=== PATIENT | male | born 1980 | race Caucasian/White ===

== ENCOUNTER 2016-06-02 21:58 | Emergency (ER) | payer MEDICAID ==
[2016-06-02] MEDS ORDERED: LORAZEPAM 2 MG/ML VIAL IV ONE (22:12)
--- NOTE | 2016-06-02 22:13 | Emergency Department Record ---
History of Present Illness - General Chief Complaint: Chest Pain Stated Complaint: CHEST PAIN/TIGHTNESS Time Seen by Provider: 06/02/16 22:12 Source: Patient Mode of Arrival: Ambulatory - History of Present Illness Initial Comments: Patient states that he began having chest tightness with anxiety around 7 p.m. tonight. He admits to having 4 drinks of alcohol and smoking some marijuana tonight. He has had "these episodes of anxiety before. " No history of CT, PE, or documented heart problems. He also complains of feeling very weak all over. Onset/Timin -: Hour(s) Pain Location: Substernal Severity scale (1-10): 5 Quality: Tightness Consistency: Constant - Related Data Home Medications Medication Instructions Recorded Confirmed Last Taken Butalb/Acetaminophen/Caffeine 1 each PO Q4H PRN 06/02/16 06/02/16 Unknown [Fioricet] Metoclopramide HCl [Reglan] 10 mg PO DAILY 06/02/16 06/02/16 Unknown Omeprazole [Prilosec] 20 mg PO DAILY 06/02/16 06/02/16 Unknown Allergies Allergy/AdvReac Type Severity Reaction Status Date / Time No Known Drug Allergies Allergy Verified 09/03/15 14:24 Travel Screening - Travel/Exposure Within Last 30 Days Have you traveled within the last 30 days?: No Review of Systems Reviewed: No additional complaints except as noted below Constitutional: Reports: As per HPI. Denies: Chills, Fever, Malaise, Night sweats, Weakness, Weight change Eyes: Reports: As per HPI. Denies: Eye discharge, Eye pain, Photophobia, Vision change ENT: Reports: As per HPI. Denies: Congestion, Dental pain, Ear pain, Epistaxis , Hearing loss, Throat pain Respiratory: Reports: As per HPI. Denies: Cough, Dyspnea, Hemoptysis, Stridor, Wheezes Cardiovascular: Reports: As per HPI. Denies: Arrhythmia, Chest pain, Dyspnea on exertion, Edema, Murmurs, Orthopnea, Palpitations, Paroxysmal nocturnal dyspnea, Rheumatic Fever, Syncope Endocrine: Reports: As per HPI. Denies: Fatigue, Heat or cold intolerance, Polydipsia, Polyuria Gastrointestinal: Reports: As per HPI. Denies: Abdominal pain, Constipation, Diarrhea, Hematemesis, Hematochezia, Melena, Nausea, Vomiting Genitourinary: Reports: As per HPI. Denies: Dysuria, Frequency, Hematuria, Incontinence, Retention, Testicular pain, Testicular mass, Urgency Musculoskeletal: Reports: As per HPI. Denies: Arthralgia, Back pain, Gout, Joint swelling, Myalgia, Neck pain Skin: Reports: As per HPI. Denies: Bruising, Change in color, Change in hair/ nails, Lesions, Pruritus, Rash Neurological: Reports: As per HPI. Denies: Abnormal gait, Confusion, Headache, Numbness, Paresthesias, Seizure, Tingling, Tremors, Vertigo, Weakness Psychiatric: Reports: As per HPI. Denies: Anxiety, Auditory hallucinations, Depression, Homicidal thoughts, Suicidal thoughts, Visual hallucinations Hematological/Lymphatic: Reports: As per HPI. Denies: Anemia, Blood Clots, Easy bleeding, Easy bruising, Swollen glands Past Medical History - SOCIAL HISTORY Smoking Status: Current every day smoker Alcohol Use: Occassional Drug Use: Occassional Drug Use Detail:: Marijuana - RESPIRATORY Hx Respiratory Disorders: No - CARDIOVASCULAR Hx Cardio Disorders: No - NEURO Hx Neuro Disorders: Yes Hx Headaches: Yes (migraines) Comment:: sciatic pain - GI Hx GI Disorders: No - Hx Genitourinary Disorders: No - ENDOCRINE Hx Endocrine Disorders: No - MUSCULOSKELETAL Hx Musculoskeletal Disorders: Yes Comment:: Sciatica - PSYCH Hx Psych Problems: No - HEMATOLOGY/ONCOLOGY Hx Hematology/Oncology Disorders: No Family Medical History Any Significant Family History?: Yes Hx Cancer: Mother Physical Exam - General General Appearance: Alert, Oriented x3, Cooperative, No acute distress, Anxious - Head Head exam: Normal inspection - Eye Eye exam: Normal appearance, PERRL Pupils: Normal accommodation - ENT ENT exam: Normal exam, Mucous membranes moist, Normal external ear exam, Normal orophraynx, TM's normal bilaterally Ear exam: Normal external inspection. negative: External canal tenderness Nasal Exam: Normal inspection. negative: Discharge, Sinus tenderness Mouth exam: Normal external inspection, Tongue normal Teeth exam: Normal inspection. negative: Dental caries Throat exam: Normal inspection. negative: Tonsillar erythema, Tonsillar exudate - Neck Neck exam: Normal inspection, Full ROM. negative: Tenderness - Respiratory Respiratory exam: Normal lung sounds bilaterally. negative: Respiratory distress - Cardiovascular Cardiovascular Exam: Normal rhythm, Normal heart sounds, Tachycardia - GI/Abdominal GI/Abdominal exam: Soft, Normal bowel sounds. negative: Tenderness - Rectal Rectal exam: Deferred - exam: Deferred - Extremities Extremities exam: Normal inspection, Full ROM, Normal capillary refill. negative: Tenderness - Back Back exam: Reports: Normal inspection, Full ROM. Denies: Muscle spasm, Rash noted, Tenderness - Neurological Neurological exam: Alert, Normal gait, Oriented X3, Reflexes normal - Psychiatric Psychiatric exam: Normal affect, Normal mood - Skin Skin exam: Dry, Intact, Normal color, Warm Course Vital Signs 06/02/16 22:03 Temperature 98.7 F Pulse Rate 124 H Respiratory 28 H Rate Blood Pressure 161/94 Pulse Ox 98 - Reevaluation(s) Reevaluation #1: Patient sleeping after ativan. Potassium ordered, awaiting results. 06/03/16 00:28 Reevaluation #2: Patient is feeling much better after sleeping. No further tachycardia. Awaiting repeat blood draw. Going back to sleep. 06/03/16 01:01 Reevaluation #3: Patient's drugs screen is positive for opiates, barbs, marijuana and alcohol. 06/03/16 02:38 Medical Decision Making - Management Options MDM Management: No Additional Work-up Planned - Data Complexity MDM Data: Labs Ordered and/or Reviewed, X-Ray Ordered and/or Reviewed (CXR two view Neg per ED physician) - Lab Data Result diagrams: 06/02/16 22:07 06/02/16 22:07 Disposition Disposition: Discharge Clinical Impression: Anxiety attack, Polydrug abuse Disposition: Home, Self-Care Condition: (1) Good Instructions: Polysubstance Abuse (ED), Cannabis Abuse (ED), Anxiety (ED), Narcotic Abuse (ED), Barbiturate Abuse (ED), Abuse of Alcohol (ED) Additional Instructions: Discontinue abuse of all drugs. Home to bed, do not drive. Follow up with PCP. Forms: Patient Portal Access
[2016-06-02 22:16] LABS: BASO % 0.3 % (0-6); EOS % 2.3 % (0-6); GRAN % 59.4 % (47-80); HEMATOCRIT 40.1 % (42.0-52.0); HEMOGLOBIN 14.4 gm/dl (14.0-18.0); LYMPH % 26.8 % (16-45); MEAN CELL VOLUME 87.2 fl (81-97); MEAN CORPUSCULAR HEMOGLOBIN 31.3 pg (27-33); MEAN CORPUSCULAR HGB CONC 35.9 g/dl (32-36); MEAN PLATELET VOLUME 9.1 fl (7.4-10.4); MONO % 11.2 % (0-9); PLATELET COUNT 321 K/uL (130-400); RED CELL DISTRIBUTION WIDTH 12.4 % (11.5-14.5); WHITE BLOOD COUNT W/O DIFF 12.1 K/uL (4.2-12.2)
[2016-06-02 22:30] LABS: ANION GAP 16.5 (7-16); BLOOD UREA NITROGEN 15 mg/dL (9-20); CARBON DIOXIDE 21.5 mmol/L (22-30); CREATININE 1.1 mg/dL (0.66-1.25); EST GLOMERULAR FILTRATION RATE > 60 ml/min; GLUCOSE,RANDOM 107 mg/dL (70-110)
[2016-06-02 22:38] LABS: BARBITURATE SCREEN URINE DETECTED; METHADONE SCREEN URINE NOT DETECTED; TRICYCLIC ANTIDEPRESSANT SCRN NOT DETECTED
[2016-06-02 22:39] LABS: AMPHETAMINE SCREEN URINE NOT DETECTED; BENZODIAZEPINE SCREEN URINE NOT DETECTED; COCAINE SCREEN URINE NOT DETECTED; METHAMPHETAMINE SCREEN NOT DETECTED; OPIATE SCREEN URINE DETECTED; OXYCODONE SCREEN URINE NOT DETECTED; PHENCYCLIDINE SCREEN URINE NOT DETECTED; PROPOXYPHENE SCREEN URINE NOT DETECTED; THC SCREEN URINE DETECTED
[2016-06-02 22:42] LABS: CKMB 7.4 ug/L (0-6)
[2016-06-02 22:50] LABS: TROPONIN I < 0.012 ng/mL (0.00-0.034)
[2016-06-02] MEDS ORDERED: POTASSIUM CHLORIDE 20 MEQ TABLET PO ONE (23:10)
[2016-06-02 23:32] LABS: CREATINE PHOSPHOKINASE 2119 U/L (55-170)
[2016-06-03] MEDS ORDERED: 0.9 % SODIUM CHLORIDE 1,000 ML BAG IV ONE (00:26)
[2016-06-03 02:28] LABS: CKMB 5.2 ug/L (0-6)
[2016-06-03 02:31] LABS: TROPONIN I < 0.012 ng/mL (0.00-0.034)
== END 2016-06-03 03:33 | disposition home or self-care (01) ==
LOC: ER 21:58
DX: F41.0 Panic disorder [episodic paroxysmal anxiety] (principal); F19.10 Other psychoactive substance abuse, uncomplicated; R07.89 Other chest pain; R53.1 Weakness; F10.10 Alcohol abuse, uncomplicated; Y90.1 Blood alcohol level of 20-39 mg/100 ml; F17.210 Nicotine dependence, cigarettes, uncomplicated
CPT/HCPCS: 99284 ×2; 96374; 82550; 85025; 82553; 84484; 80048; 84443; 80305; 85379; 71020; 93005; 93010; G0480; J2060; 80320

== ENCOUNTER 2016-10-29 12:37 | Emergency (ER) | payer MEDICAID ==
--- NOTE | 2016-10-29 13:09 | Emergency Department Record ---
History of Present Illness - General Chief Complaint: Chest Pain Stated Complaint: LT LEG NUMBNESS, PAIN IN LT KNEE,CHEST PAIN Time Seen by Provider: 10/29/16 13:03 Source: Patient, Family () Mode of Arrival: Ambulatory - History of Present Illness Initial Comments: numbness in both legs from the knees down and both lower legs painful yesterday and he took motrin and today at [employer] and he felt pain in the left posterior knee pain .Sharp pain and than he felt lightheaded and he talked to the pharmacy and came in for evaluation. He has pricly feelings in both lef and hands are numb and some prickley feelings in the face to and he has anxiety attacks before. PMH low back pain chronic and on gabapentin for his low back area. Onset/Timin -: Days(s) Onset: Awoke with symptoms, During exertion Improves With: Rest Worsens With: Exertion, Movement Treatments Prior to Arrival: Other - Related Data Home Medications Medication Instructions Recorded Confirmed Last Taken Butalb/Acetaminophen/Caffeine 1 each PO Q4H PRN 06/02/16 10/29/16 Unknown [Fioricet] Metoclopramide HCl [Reglan] 10 mg PO DAILY 06/02/16 10/29/16 10/28/16 Omeprazole [Prilosec] 20 mg PO DAILY 06/02/16 10/29/16 Unknown Cyclobenzaprine HCl [Flexeril] 10 mg PO TID 10/29/16 10/29/16 10/29/16 Gabapentin [Neurontin] 300 mg PO TID 10/29/16 10/29/16 10/29/16 Previous Rx's Medication Instructions Recorded Hydroxyzine Pamoate [Vistaril] 25 mg PO Q6H #20 capsule 10/29/16 Allergies Allergy/AdvReac Type Severity Reaction Status Date / Time No Known Drug Allergies Allergy Verified 09/03/15 14:24 Travel Screening - Travel/Exposure Within Last 30 Days Have you traveled within the last 30 days?: No - Travel/Exposure Within Last Year Have you traveled outside the [place] in the last year?: No - Additonal Travel Details Have you been exposed to anyone with a communicable illness?: No Review of Systems Reviewed: No additional complaints except as noted below Constitutional: Reports: As per HPI. Denies: Chills, Fever, Malaise, Night sweats, Weakness, Weight change Eyes: Reports: As per HPI. Denies: Eye discharge, Eye pain, Photophobia, Vision change ENT: Reports: As per HPI. Denies: Congestion, Dental pain, Ear pain, Epistaxis , Hearing loss, Throat pain Respiratory: Reports: As per HPI. Denies: Cough, Dyspnea, Hemoptysis, Stridor, Wheezes Cardiovascular: Reports: As per HPI. Denies: Arrhythmia, Chest pain, Dyspnea on exertion, Edema, Murmurs, Orthopnea, Palpitations, Paroxysmal nocturnal dyspnea, Rheumatic Fever, Syncope Endocrine: Reports: As per HPI. Denies: Fatigue, Heat or cold intolerance, Polydipsia, Polyuria Gastrointestinal: Reports: As per HPI. Denies: Abdominal pain, Constipation, Diarrhea, Hematemesis, Hematochezia, Melena, Nausea, Vomiting Genitourinary: Reports: As per HPI. Denies: Dysuria, Frequency, Hematuria, Incontinence, Retention, Testicular pain, Testicular mass, Urgency Musculoskeletal: Reports: As per HPI. Denies: Arthralgia, Back pain, Gout, Joint swelling, Myalgia, Neck pain Skin: Reports: As per HPI. Denies: Bruising, Change in color, Change in hair/ nails, Lesions, Pruritus, Rash Neurological: Reports: As per HPI. Denies: Abnormal gait, Confusion, Headache, Numbness, Paresthesias, Seizure, Tingling, Tremors, Vertigo, Weakness Psychiatric: Reports: As per HPI. Denies: Anxiety, Auditory hallucinations, Depression, Homicidal thoughts, Suicidal thoughts, Visual hallucinations Hematological/Lymphatic: Reports: As per HPI. Denies: Anemia, Blood Clots, Easy bleeding, Easy bruising, Swollen glands Past Medical History - SOCIAL HISTORY Smoking Status: Current every day smoker Alcohol Use: None Drug Use: None - RESPIRATORY Hx Respiratory Disorders: No - CARDIOVASCULAR Hx Cardio Disorders: No - NEURO Hx Neuro Disorders: Yes Hx Headaches: Yes (migraines) Comment:: sciatic pain - GI Hx GI Disorders: No - Hx Genitourinary Disorders: No - ENDOCRINE Hx Endocrine Disorders: No - MUSCULOSKELETAL Hx Musculoskeletal Disorders: Yes Comment:: Sciatica - PSYCH Hx Psych Problems: No - HEMATOLOGY/ONCOLOGY Hx Hematology/Oncology Disorders: No Family Medical History Any Significant Family History?: No Hx Cancer: Mother Physical Exam - General General Appearance: Alert, Oriented x3, Cooperative, No acute distress - Head Head exam: Normal inspection - Eye Eye exam: Normal appearance, PERRL Pupils: Normal accommodation - ENT ENT exam: Normal exam, Mucous membranes moist, Normal external ear exam, Normal orophraynx, TM's normal bilaterally Ear exam: Normal external inspection. negative: External canal tenderness Nasal Exam: Normal inspection. negative: Discharge, Sinus tenderness Mouth exam: Normal external inspection, Tongue normal Teeth exam: Normal inspection. negative: Dental caries Throat exam: Normal inspection. negative: Tonsillar erythema, Tonsillar exudate - Neck Neck exam: Normal inspection, Full ROM. negative: Tenderness - Respiratory Respiratory exam: Normal lung sounds bilaterally. negative: Respiratory distress - Cardiovascular Cardiovascular Exam: Regular rate, Normal rhythm, Normal heart sounds - GI/Abdominal GI/Abdominal exam: Soft, Normal bowel sounds. negative: Tenderness - Rectal Rectal exam: Deferred - exam: Deferred - Extremities Extremities exam: Normal inspection, Full ROM, Normal capillary refill. negative: Tenderness - Back Back exam: Reports: Normal inspection, Full ROM. Denies: Muscle spasm, Rash noted, Tenderness - Neurological Neurological exam: Alert, Normal gait, Oriented X3, Reflexes normal - Psychiatric Psychiatric exam: Normal affect, Normal mood - Skin Skin exam: Dry, Intact, Normal color, Warm Course Vital Signs 10/29/16 12:43 Temperature 98.5 F Pulse Rate 87 Respiratory 20 Rate Blood Pressure 142/93 Pulse Ox 99 Medical Decision Making - Data Complexity MDM Data: Labs Ordered and/or Reviewed, EKG Ordered and/or Reviewed (No acute changes) - Lab Data Result diagrams: 10/29/16 13:41 10/29/16 13:41 Disposition Clinical Impression: Anxiety attack Disposition: Home, Self-Care Condition: (1) Good Instructions: Panic Disorder (ED) Additional Instructions: vistaril as needed for anxiety follow up with family in 3 days Prescriptions: Hydroxyzine Pamoate [Vistaril] 25 mg PO Q6H #20 capsule Forms: Patient Portal Access Time of Disposition: 14:43 Quality - Quality Measures Quality Measures: N/A - Blood Pressure Screening Blood Pressure Classification: Hypertensive Reading Systolic Measurement: 142 Diastolic Measurement: 93 Screening for High Blood Pressure: < First Hypertensive BP, F/U Documented > [ G8950] First Hypertensive Follow-up Interventions: Referral to alternative/primary care provider.
[2016-10-29] MEDS ORDERED: 0.9 % SODIUM CHLORIDE 1000ML 1,000 ML IV PRN (13:13)
[2016-10-29] MEDS ORDERED: ASPIRIN 81 MG CHEWABLE TABLET PO ONE (13:13)
[2016-10-29 13:53] LABS: BASO % 0.8 % (0-6); EOS % 4.8 % (0-6); GRAN % 58.5 % (47-80); HEMATOCRIT 42.5 % (42.0-52.0); HEMOGLOBIN 14.9 gm/dl (14.0-18.0); LYMPH % 27.6 % (16-45); MEAN CELL VOLUME 88.9 fl (81-97); MEAN CORPUSCULAR HEMOGLOBIN 31.2 pg (27-33); MEAN CORPUSCULAR HGB CONC 35.1 g/dl (32-36); MEAN PLATELET VOLUME 9.3 fl (7.4-10.4); MONO % 8.3 % (0-9); PLATELET COUNT 273 K/uL (130-400); RED BLOOD COUNT 4.78 M/uL (4.40-5.70); RED CELL DISTRIBUTION WIDTH 12.5 % (11.5-14.5); WHITE BLOOD COUNT W/O DIFF 6.2 K/uL (4.2-12.2)
[2016-10-29 14:02] LABS: BLOOD UREA NITROGEN 13 mg/dL (9-20); CREATININE 0.9 mg/dL (0.66-1.25); EST GLOMERULAR FILTRATION RATE > 60 ml/min; GLUCOSE,RANDOM 92 mg/dL (70-110)
[2016-10-29 14:05] LABS: PARTIAL THROMBOPLASTIN TIME 26.8 SECONDS (24.5-39.1)
[2016-10-29 14:06] LABS: D-DIMER 0.19 mg/L FEU (0-0.59)
[2016-10-29 14:15] LABS: CKMB 0.5 ug/L (0-6)
[2016-10-29 14:18] LABS: TROPONIN I < 0.012 ng/mL (0.00-0.034)
[2016-10-29] MEDS ORDERED: ACETAMINOPHEN 500 MG TABLET PO ONE (14:20)
== END 2016-10-29 14:55 | disposition home or self-care (01) ==
LOC: ER 12:37
DX: F41.0 Panic disorder [episodic paroxysmal anxiety] (principal); R20.0 Anesthesia of skin; R07.9 Chest pain, unspecified; R42 Dizziness and giddiness; M54.5 Low back pain
CPT/HCPCS: 80048; 82553; 84484; 85025; 85379; 85730; 93005; 93010; 99284

== ENCOUNTER 2017-07-18 18:50 | Emergency (ER) | payer MEDICAID ==
--- NOTE | 2017-07-18 19:04 | Emergency Department Record ---
History of Present Illness - General Chief complaint: Cold Stated complaint: COUGH,BODY ACHES,NAUSEA Source: Patient Mode of Arrival: Ambulatory Limitations: No limitations - History of Present Illness Initial comments: 36 yo male presents with about 3-4 days of cough, body aches, subjective fevers , yellow to greenish sputum. He did have a flu shot. He is a non smoker. No underlying lung disease. He does get nausea at times with coughing. No rash. No chest pain. No relief with over the counters. MD complaint: Sore throat, Other (cough, body aches) -: Days(s) (3-4) Quality: Aching Consistency: Constant Improves with: None Worsens with: Other (coughing) Context- Ear: Recent illness Associated Symptoms: Cough, Fever, Sore throat - Related Data Previous Rx's Medication Instructions Recorded Azithromycin [Zithromax] 250 mg PO DAILY #4 tab 07/18/17 Benzonatate [Tessalon] 100 mg PO QID #20 capsule 07/18/17 Allergies Allergy/AdvReac Type Severity Reaction Status Date / Time No Known Drug Allergies Allergy Verified 07/18/17 18:57 Review of Systems Constitutional: Reports: Chills, Fever, Malaise Eyes: Denies: Eye discharge, Photophobia, Vision change ENT: Reports: Congestion, Throat pain Respiratory: Reports: Cough. Denies: Dyspnea, Hemoptysis, Stridor, Wheezes Cardiovascular: Denies: Chest pain, Palpitations, Syncope Endocrine: Reports: Fatigue Gastrointestinal: Reports: Nausea. Denies: Abdominal pain, Diarrhea, Vomiting Genitourinary: Denies: Dysuria, Frequency Musculoskeletal: Reports: Myalgia. Denies: Arthralgia, Back pain, Joint swelling Skin: Denies: Bruising, Change in color, Pruritus Neurological: Reports: Headache. Denies: Numbness, Weakness Psychiatric: Denies: Anxiety Hematological/Lymphatic: Denies: Easy bleeding, Easy bruising Past Medical History - SOCIAL HISTORY Smoking Status: Current every day smoker Drug Use: None - RESPIRATORY Hx Respiratory Disorders: No - CARDIOVASCULAR Hx Cardio Disorders: No - NEURO Hx Neuro Disorders: Yes Hx Headaches: Yes (migraines) Comment:: sciatic pain - GI Hx GI Disorders: No - Hx Genitourinary Disorders: No - ENDOCRINE Hx Endocrine Disorders: No - MUSCULOSKELETAL Hx Musculoskeletal Disorders: Yes Comment:: Sciatica - PSYCH Hx Psych Problems: No - HEMATOLOGY/ONCOLOGY Hx Hematology/Oncology Disorders: No Family Medical History Hx Cancer: Mother Physical Exam - General General Appearance: Alert, Oriented x3, Cooperative, No acute distress - Head Head exam: Normal inspection - Eye Eye exam: Normal appearance, PERRL. negative: Conjunctival injection - ENT ENT exam: Normal exam, Mucous membranes moist, Normal external ear exam, Normal orophraynx, TM's normal bilaterally Ear exam: Normal external inspection. negative: External canal tenderness Nasal Exam: Discharge Mouth exam: Normal external inspection, Tongue normal Teeth exam: Normal inspection. negative: Dental caries Throat exam: Normal inspection. negative: Tonsillar erythema, Tonsillomegaly, Tonsillar exudate, R peritonsillar mass, L peritonsillar mass - Neck Neck exam: Normal inspection, Full ROM. negative: Tenderness - Respiratory Respiratory exam: Normal lung sounds bilaterally. negative: Decreased breath sounds, Respiratory distress, Rhonchi, Stridor, Wheezes - Cardiovascular Cardiovascular Exam: Regular rate, Normal rhythm, Normal heart sounds - GI/Abdominal GI/Abdominal exam: Soft. negative: Tenderness - Rectal Rectal exam: Deferred - exam: Deferred - Extremities Extremities exam: Normal inspection, Full ROM, Normal capillary refill. negative: Tenderness - Back Back exam: Reports: Normal inspection, Full ROM. Denies: CVA tenderness (R), CVA tenderness (L), Muscle spasm, Rash noted, Tenderness - Neurological Neurological exam: Alert, Normal gait, Oriented X3 - Psychiatric Psychiatric exam: Normal affect, Normal mood - Skin Skin exam: Dry, Intact, Normal color, Warm Course - Reevaluation(s) Reevaluation #1: 07/18/17 19:33 Influenza Negative Disposition Disposition: Discharge Clinical Impression: Bronchitis Disposition: Home, Self-Care Condition: (1) Good Instructions: Acute Bronchitis (ED) Additional Instructions: Rest and stay well hydrated Call your doctor for a recheck if not improving Return if worse, any new concerns or symptoms Prescriptions: Azithromycin [Zithromax] 250 mg PO DAILY #4 tab Benzonatate [Tessalon] 100 mg PO QID #20 capsule Forms: Patient Portal Access Time of Disposition: 19:34 Quality - Quality Measures Quality Measures: N/A - Blood Pressure Screening Does Patient Have Any of the Following: No Blood Pressure Classification: Hypertensive Reading Systolic Measurement: 136 Diastolic Measurement: 92 Screening for High Blood Pressure: < Pre-Hypertensive BP, F/U Documented > [ G8950] Pre-Hypertensive Follow-up Interventions: Referral to alternative/primary care provider.
[2017-07-18 19:18] LABS: INFLUENZA A NEGATIVE (NEGATIVE); INFLUENZA B NEGATIVE (NEGATIVE)
[2017-07-18] MEDS ORDERED: BENZONATATE 100 MG CAPSULE PO ONE (19:32)
[2017-07-18] MEDS ORDERED: AZITHROMYCIN 500 MG TABLET PO ONE (19:32)
== END 2017-07-18 19:40 | disposition home or self-care (01) ==
LOC: ER 18:50
DX: J20.9 Acute bronchitis, unspecified (principal); F17.210 Nicotine dependence, cigarettes, uncomplicated
CPT/HCPCS: 87400; 99282